=== PATIENT | male | born 1970 | race Caucasian/White ===

== ENCOUNTER 2018-03-04 11:01 | Emergency (ER) | payer OTHER ==
[~2018-03-04] VITALS: Ht 180.3 cm; Wt 103.4 kg
--- NOTE | 2018-03-04 11:44 | ED UPPER/LOWER EXTREMITY COMPL ---
History of Present Illness General Chief Complaint: Lower Extremity Injury Stated Complaint: L LEG PAIN Source: patient Exam Limitations: no limitations Vital Signs & Intake/Output Vital Signs & Intake/Output Vital Signs Date Time Temp Pulse Resp B/P B/P Pulse O2 O2 Flow FiO2 Mean Ox Delivery Rate 03/04 1552 98.0 68 16 118/60 97 Room Air 03/04 1345 98.7 70 18 120/62 99 Room Air 03/04 1249 Room Air 03/04 1201 62 16 100/56 100 Room Air 03/04 1121 96.1 95 18 70/40 96 Room Air Allergies Coded Allergies: No Known Allergies (03/04/18) Reconcile Medications Ibuprofen 800 MG TABLET 1 TAB PO TID pain Oxycodone HCl/Acetaminophen (Percocet 5-325 MG Tablet) 5 MG-325 MG TABLET 1-2 TAB PO BID pain Triage Note: PT TO ER C/C LEFT LOWER EXT PAIN S/P TREE "KICKING BACK" WHILE CUTTING IT. PAIN 9/10. ABRASION, SWELLING NOTED. PATIENT STATES HE FEELS CRAMPING IN HIS LOWER EXTREMITY AND PRESSURE. +CMS. LAST TETANUS > 10 YEARS AGO Triage Nurses Notes Reviewed? yes Onset: Abrupt Duration: hour(s):, constant Timing: single episode today Severity: moderate, severe Method of Injury: direct blow HPI: 47-year-old male comes into the emergency room with complaints of left lower leg pain. Patient reports that he was working outside after the storm. A tree fell and came down on his left leg. He has swelling. He is unable to bear any weight. He was hypotensive in triage. He was brought back for further evaluation. He denies hitting his head. Denies loss of consciousness neck pain or head injury. (Anup Frazier) Past History Travel History Traveled to [place] past 21 day No Medical History Any Pertinent Medical History? none Surgical History Surgical History: non-contributory Psychosocial History What is your primary language Amharic Tobacco Use: Never used Family History Hx Contributory? No (Anup Frazier) Review of Systems Review of Systems Constitutional: Reports: no symptoms. EENTM: Reports: no symptoms. Respiratory: Reports: no symptoms. Cardiovascular: Reports: no symptoms. Gastrointestinal/Abdominal: Reports: no symptoms. Genitourinary: Reports: no symptoms. Musculoskeletal: Reports: see HPI. Skin: Reports: no symptoms. Neurological/Psychological: Reports: no symptoms. Hematologic/Endocrine: Reports: no symptoms. Immunological: Reports: no symptoms. All Other Systems: Reviewed and Negative (Anup Frazier) Physical Exam Physical Exam General Appearance: well developed/nourished, mild distress Head: atraumatic Eyes: Bilateral: normal appearance, EOMI. Ears, Nose, Throat: normal ENT inspection, hearing grossly normal Neck: normal inspection Cardiovascular/Respiratory: no respiratory distress Back: normal inspection Leg Left: skin abrasion to left mid shaft tibia/fibula, swelling, Limited range of motion of knee, soft tissue tenderness and bony tenderness, Limited range of motion of left ankle, pain with palpation, dorsalis pedis pulses intact, sensation intact, full range of motion of left hip, no tenderness in hip joint Knee Left: soft tissue tenderness, Bony tenderness over any joint Neurologic/Tendon: normal sensation, normal motor functions, normal tendon functions, responds to pain, no evidence tendon injury, no pulse deficit Skin: intact, normal color, warm/dry (Anup Frazier) Progress Differential Diagnosis: compartment syndrome, contusion, dislocation, DVT, fracture, sprain, tendon injury Plan of Care: Orders Procedure Date/time Status CT LOWER EXT WO IV CONTRAST 03/04 1424 Active Diagnostic Imaging: Viewed by Me: Radiology Read. Discussed w/RAD: Radiology Read. Radiology Impression: PATIENT: BAN VIRAMONTES PRESENT AGE: 47 PATIENT ACCOUNT NO: [id number] : 70 LOCATION: [facility] ORDERING PHYSICIAN: Anup MUELLER SERVICE DATE: 03/04/18 EXAM TYPE : RAD - XRY-KNEE COMPLETE LEFT EXAMINATION: XR KNEE, LEFT CLINICAL INFORMATION: Hit by falling tree. Pain. COMPARISON: None TECHNIQUE: Four views of the left knee. FINDINGS: There is an acute mildly depressed partly comminuted fracture involving the lateral aspect of the tibial plateau. The fibular head appears intact. No joint effusion is seen. The distal femur and patella are intact. The soft tissues are within normal limits. IMPRESSION: Acute mildly depressed partly comminuted fracture of the lateral aspect of the tibial plateau. DICTATED BY: Jose A Echols MD DATE/TIME DICTATED:03/04/181309 CONSTRUCTION SALES REPRESENTATIVE:RAD.TORRES DATE/TIME TRANSCRIBED:03/04/181309 CONFIDENTIAL, DO NOT COPY WITHOUT APPROPRIATE AUTHORIZATION. <Electronically signed in Other Vendor System> SIGNED BY: Jose A Echols MD 03/04/181314, PATIENT: BAN VIRAMONTES PRESENT AGE: 47 PATIENT ACCOUNT NO: [id number] : LOCATION: [facility] ORDERING PHYSICIAN: Anup MUELLER SERVICE DATE: EXAM TYPE: RAD - XRY-ANKLE 3 OR MORE VIEWS L EXAMINATION: XR ANKLE, LEFT CLINICAL INFORMATION: Head by falling tree. Pain. COMPARISON: None TECHNIQUE: AP, lateral, and mortise views of the left ankle. FINDINGS: The ankle mortise is intact. No fracture is seen. There is no tibiotalar joint effusion. The joints maintain anatomic alignment and the joint spaces are preserved. The soft tissues appear normal. IMPRESSION: Normal left ankle. DICTATED BY: Jose A Echols MD DATE/TIME DICTATED:03/04/181310 CONSTRUCTION SALES REPRESENTATIVE:TORRES DATE/ TIME TRANSCRIBED:03/04/181310 CONFIDENTIAL, DO NOT COPY WITHOUT APPROPRIATE AUTHORIZATION. <Electronically signed in Other Vendor System> SIGNED BY: Jose A Echols MD 03/04/181315, PATIENT: BAN VIRAMONTES PRESENT AGE: 47 PATIENT ACCOUNT NO: [id number] : 70 LOCATION: [facility] ORDERING PHYSICIAN: Anup MUELLER SERVICE DATE: 03/04/18 EXAM TYPE: RAD - [id number], LEFT EXAMINATION: XR TIBIA AND FIBULA, LEFT CLINICAL INFORMATION: Traumatic injury. Pain and swelling. COMPARISON: None TECHNIQUE: AP and lateral views of the left tibia and fibula were obtained. FINDINGS: There is an acute fracture involving the lateral aspect of the tibial plateau. The remainder of the tibia and fibula appear normal. The soft tissues appear normal. IMPRESSION: Acute fracture involving lateral aspect of the tibial plateau. DICTATED BY: Jose A Echols MD DATE/TIME DICTATED:03/04/181300 CONSTRUCTION SALES REPRESENTATIVE:TORRES DATE/TIME TRANSCRIBED:03/04/181300 CONFIDENTIAL, DO NOT COPY WITHOUT APPROPRIATE AUTHORIZATION. <Electronically signed in Other Vendor System> SIGNED BY: Jose A Echols MD 03/04/18 1313, PATIENT: BAN VIRAMONTES PRESENT AGE: 47 PATIENT ACCOUNT NO: [id number] : 70 LOCATION: [facility] ORDERING PHYSICIAN: Anup MUELLER SERVICE DATE: 03/04/18 EXAM TYPE: RAD - XRY-FOREARM, LEFT EXAMINATION: XR FOREARM, LEFT CLINICAL INFORMATION: Hit by falling tree. COMPARISON: None TECHNIQUE: AP and lateral views of the left forearm were obtained. FINDINGS: The bones and soft tissues are normal. No fracture. Imaged portions of the elbow and wrist are unremarkable. IMPRESSION: Normal left forearm. DICTATED BY: Jose A Echols MD DATE/TIME DICTATED:03/04/181311 CONSTRUCTION SALES REPRESENTATIVE:ROSSI DATE/TIME TRANSCRIBED:03/04/181311 CONFIDENTIAL, DO NOT COPY WITHOUT APPROPRIATE AUTHORIZATION. <Electronically signed in Other Vendor System> SIGNED BY: Jose A Echols MD 03/04/18 1316 Comments: 03/04/2018 3:00:49 PM Spoke with orthopedic PA. Patient will get a CAT scan and then be discharged. Nonweightbearing. They will follow up with him in the office. (Aftab MUELLER,Anup) Departure Departure Disposition: HOME OR SELF CARE Condition: Stable Clinical Impression Primary Impression: Tibial plateau fracture, left Referrals: Alejandro JOHNSON,Joby Additional Instructions: Nonweightbearing. Ibuprofen and Percocet for pain. Follow-up with orthopedic doctor provided. Return if any concerns worsening symptoms. Please go over all results of today's visit with your primary care doctor. Contact your primary care doctor to let them know you were here in the emergency room. There may be nonspecific findings which may not be related to your visit today here in the emergency room but may require further evaluation and chronic monitoring by your primary care doctor. If you had a laceration today the chance of foreign body always remains. You should follow-up with your primary care doctor for recheck in 3-5 days for a wound check. If you had an x-ray done there is a chance that a fracture could have been missed on initial read and you should follow-up with your primary care doctor for repeat x-rays if symptoms persist. If your blood pressure was elevated here in the emergency room please have rechecked by [facility] primary care doctor within the next 48. If you were prescribed a narcotic here in the emergency room or any type of controlled substances you're not allowed to drive while taking this medication or operate any type of heavy machinery. Narcotics can make you feel lightheaded dizziness nausea and can cause constipation. You may need to apple picking supervisor a stool softener. Thank you for choosing [facility] emergency room. Please return to the emergency room immediately if you have any other concerns worsening of symptoms. Departure Forms: Customer Survey General Discharge Information Prescriptions: Current Visit Scripts Oxycodone HCl/Acetaminophen (Percocet 5-325 MG Tablet) 1-2 TAB PO BID #20 TAB Ibuprofen 1 TAB PO TID #30 TAB (Anup Frazier) PA/TUFTING CREELER Co-Sign Statement Statement: ED Attending supervision documentation- [] I saw and evaluated the patient. I have also reviewed all the pertinent lab results and diagnostic results. I agree with the findings and the plan of care as documented in the PA's/TUFTING CREELER's documentation. [x] I have reviewed the ED Record and agree with the PA's/TUFTING CREELER's documentation. [] Additions or exceptions (if any) to the PAs/TUFTING CREELER's note and plan are summarized below: [] (Juan Dyson DO) Procedures Splinting Location: left knee Manual Alignment Performed: No Pre-Made Type: knee imobilizer Splint Applied By: splint applied by me Pre-Proc Neuro Vasc Exam: normal Post-Proc Neuro Vasc Exam: normal (Anup Frazier)
--- NOTE | 2018-03-04 13:13 | RADIOLOGY REPORT ---
EXAMINATION: XR TIBIA AND FIBULA, LEFT CLINICAL INFORMATION: Traumatic injury. Pain and swelling. COMPARISON: None TECHNIQUE: AP and lateral views of the left tibia and fibula were obtained. FINDINGS: There is an acute fracture involving the lateral aspect of the tibial plateau. The remainder of the tibia and fibula appear normal. The soft tissues appear normal. IMPRESSION: Acute fracture involving lateral aspect of the tibial plateau.
--- NOTE | 2018-03-04 13:15 | RADIOLOGY REPORT ---
EXAMINATION: XR KNEE, LEFT CLINICAL INFORMATION: Hit by falling tree. Pain. COMPARISON: None TECHNIQUE: Four views of the left knee. FINDINGS: There is an acute mildly depressed partly comminuted fracture involving the lateral aspect of the tibial plateau. The fibular head appears intact. No joint effusion is seen. The distal femur and patella are intact. The soft tissues are within normal limits. IMPRESSION: Acute mildly depressed partly comminuted fracture of the lateral aspect of the tibial plateau.
--- NOTE | 2018-03-04 13:16 | RADIOLOGY REPORT ---
EXAMINATION: XR ANKLE, LEFT CLINICAL INFORMATION: Head by falling tree. Pain. COMPARISON: None TECHNIQUE: AP, lateral, and mortise views of the left ankle. FINDINGS: The ankle mortise is intact. No fracture is seen. There is no tibiotalar joint effusion. The joints maintain anatomic alignment and the joint spaces are preserved. The soft tissues appear normal. IMPRESSION: Normal left ankle.
--- NOTE | 2018-03-04 13:16 | RADIOLOGY REPORT ---
EXAMINATION: XR FOREARM, LEFT CLINICAL INFORMATION: Hit by falling tree. COMPARISON: None TECHNIQUE: AP and lateral views of the left forearm were obtained. FINDINGS: The bones and soft tissues are normal. No fracture. Imaged portions of the elbow and wrist are unremarkable. IMPRESSION: Normal left forearm.
[2018-03-04] MEDS ORDERED: IBUPROFEN800 M1 PO (13:42)
[2018-03-04] MEDS ORDERED: PERCOCET 5-3251 EACH PO (13:42)
[2018-03-04 15:52] VITALS: BP 118/60
--- NOTE | 2018-03-04 16:34 | CT SCAN REPORT ---
EXAMINATION: CT LOWER EXTREMITY WITHOUT CONTRAST, LEFT CLINICAL INFORMATION: Tibial plateau fracture. COMPARISON: Radiograph 03/04/2018. TECHNIQUE: A noncontrast CT of the left knee is performed with sagittal and coronal reformats. DLP: 293 mGy-cm FINDINGS: There is an impaction fracture of the lateral tibial plateau anterolaterally. There are several fracture fragments, with maximal depression of approximately 6 mm. Peripheral fragments are displaced laterally approximately 4 mm. There is a hairline fracture of the fibular head anteriorly. Small joint effusion. IMPRESSION: Slightly displaced impaction fracture of the lateral tibial plateau anterolaterally. Small joint effusion. Hairline fracture of the fibular head anteriorly.
== END 2018-03-04 15:53 ==
LOC: ERH 11:01
DX: S82.142A Displaced bicondylar fracture of left tibia, initial encounter for closed fracture (principal); M25.572 Pain in left ankle and joints of left foot; S80.812A Abrasion, left lower leg, initial encounter; W20.8XXA Other cause of strike by thrown, projected or falling object, initial encounter; Y93.9 Activity, unspecified; Y92.9 Unspecified place or not applicable
CPT/HCPCS: 73090-LT; 73562-LT; 73590-LT; 73610-LT; 90471; 90714